=== PATIENT | male | born 1960 | race Native Hawaiian/Other Pacific Islander ===

== ENCOUNTER 2018-06-26 12:22 | Emergency (ER) | payer OTHER ==
[~2018-06-26] VITALS: Ht 180.3 cm; Wt 136.1 kg
[2018-06-26] MEDS ORDERED: LISI10TA11 PO (12:54)
[2018-06-26] MEDS ORDERED: CARAFATE1 GM PO (13:01)
[2018-06-26 13:07] LABS: PLATELET COUNT 272 K/uL (142-355)
[2018-06-26 13:26] LABS: POTASSIUM 3.9 mmol/L (3.6-5.2); SODIUM 137 mmol/L (136-145)
[2018-06-26 15:08] VITALS: BP 121/79; TEMP 98.1
== END 2018-06-26 15:08 | disposition short-term general hospital (02) ==
LOC: ED 12:22
PROVIDERS: Emergency Medicine
DX: I48.91 Unspecified atrial fibrillation (principal); F41.9 Anxiety disorder, unspecified; E66.9 Obesity, unspecified
CPT/HCPCS: 36415; 80053; 82550; 83735; 84484; 85027; 93005; 96365; 96366; 96375; 96376; 99285; J3490

== ENCOUNTER 2018-06-26 15:15 | Outpatient (CLI) | payer OTHER ==
[~2018-06-26 15:15] MED LIST: CARAFATE1 GM PO; LISI10TA11 PO
== END 2018-06-26 15:46 | disposition short-term general hospital (02) ==
LOC: AMB 15:15
DX: I48.91 Unspecified atrial fibrillation (principal); F41.9 Anxiety disorder, unspecified; E66.9 Obesity, unspecified
CPT/HCPCS: A0425; A0427